=== PATIENT | male | born 1995 | race African-American/Black ===

== ENCOUNTER 2020-03-08 19:39 | Emergency (ER) | payer OTHER ==
[2020-03-08] MEDS ORDERED: SODIUM CHLORIDE 0.9% 500 ML 500 ML IV STA (20:03)
[2020-03-08] MEDS ORDERED: MORPHINE SULFATE 4 MG/ML SYRINGE IVP STA (20:03)
[2020-03-08] MEDS ORDERED: PROPOFOL 10 MG/ML 20 ML VIAL IV ONE (20:13)
--- NOTE | 2020-03-08 20:24 | ED ---
Lower Extremity Injury HPI <Forrest Ventura - Last Filed: 03/08/20 22:22> - General Source: patient, EMS Mode of arrival: wheelchair Limitations: no limitations <Jeanie Herrmann - Last Filed: 03/08/20 22:35> - General Chief Complaint: Extremity Injury, Lower Stated Complaint: Fall, L Ankle Injury Time Seen by Provider: 03/08/20 19:52 - History of Present Illness Initial Comments: Patient is a 24-year-old male presenting to the emergency Department with complaints of left ankle injury. Patient states he was doing some flips outside when he slipped on a landing and had instant left ankle pain. Patient states he is not able ambulate, obvious deformity. He denies any previous ankle injuries or surgeries. He denies hitting his head, no other complaints of pain. He has no further complaints. Upon arrival to the ER, his vital signs are stable (Jeanie Herrmann) - Related Data Allergies Allergy/AdvReac Type Severity Reaction Status Date / Time No Known Allergies Allergy Verified 03/08/20 20:04 Review of Systems ROS Other: All systems not noted in ROS Statement are negative. <Forrest Ventura - Last Filed: 03/08/20 22:22> ROS Other: All systems not noted in ROS Statement are negative. <Jeanie Herrmann - Last Filed: 03/08/20 22:35> ROS Statement: Those systems with pertinent positive or pertinent negative responses have been documented in the HPI. Past Medical History Past Medical History: No Reported History History of Any Multi-Drug Resistant Organisms: None Reported Past Surgical History: No Surgical Hx Reported Past Psychological History: No Psychological Hx Reported Smoking Status: Never smoker Past Alcohol Use History: None Reported Past Drug Use History: None Reported <Jeanie Herrmann - Last Filed: 03/08/20 22:35> General Exam Limitations: no limitations <Jeanie Herrmann - Last Filed: 03/08/20 22:35> - General Exam Comments Initial Comments: GENERAL: Patient is well-developed and well-nourished. Patient is nontoxic and in no acute distress. HEAD: Atraumatic, normocephalic. EYES: Pupils equal round and reactive to light, extraocular movements intact, sclera anicteric, conjunctiva are normal. Eyelids were unremarkable. ENT: TMs normal, nares patent, oropharynx clear without exudates. Moist mucous membranes. NECK: Normal range of motion, supple without lymphadenopathy or JVD. LUNGS: Unlabored respirations. Breath sounds clear to auscultation bilaterally and equal. No wheezes rales or rhonchi. HEART: Regular rate and rhythm without murmurs, rubs or gallops. ABDOMEN: Soft, nontender, normoactive bowel sounds. No guarding, no rebound. No masses appreciated. : Deferred MUSCULOSKELETAL: patient has an obvious deformity of the left lateral ankle, appears dislocated laterally. He is neurovascular intact. No pain of the left upper leg or left knee. No clubbing or cyanosis. NEUROLOGICAL: Patient is alert and oriented x 3. Normal speech. PSYCH: Normal mood, normal affect. SKIN: Warm, Dry, normal turgor, no rashes or lesions noted. (Jeanie Herrmann) Course Vital Signs 03/08/20 03/08/20 03/08/20 20:00 20:55 21:00 Temperature 100.9 F H Pulse Rate 80 75 77 Respiratory 18 18 18 Rate Blood Pressure 169/95 160/95 160/101 O2 Sat by Pulse 100 100 100 Oximetry 03/08/20 03/08/20 03/08/20 21:03 21:05 21:10 Temperature Pulse Rate 73 70 75 Respiratory 18 16 18 Rate Blood Pressure 145/90 151/89 O2 Sat by Pulse 100 100 100 Oximetry 03/08/20 03/08/20 03/08/20 21:15 21:30 21:45 Temperature Pulse Rate 74 79 75 Respiratory 18 18 17 Rate Blood Pressure 162/100 155/90 147/98 O2 Sat by Pulse 100 100 98 Oximetry 03/08/20 03/08/20 22:00 22:15 Temperature 99.6 F Pulse Rate 78 Respiratory 17 Rate Blood Pressure 147/75 O2 Sat by Pulse 99 Oximetry Procedures - Procedural Sedation Procedural Sedation Start Time: 21:00 Procedural Sedation Stop Time: 21:04 Indications: other (ankle dislocation reduction) ASA Class: I Mallampati Airway Score: 2 Preparation: cardiac catheterization technologist applied, pulse oximeter, supplemental O2 applied IV Propofol Dose (mgs): 150 Complications: none Patient Tolerated Procedure: well <Forrest Ventura - Last Filed: 08/08/20 22:22> - Orthopedic Joint Reduction Joint #1 Consent Obtained: verbal consent, written consent Side: left Joint Reduction Location: ankle Analgesia: procedural sedation Technique Used: direct manipulation Post-Reduction Neuro Exam: intact Post-Reduction Vascular Exam: intact Post Reduction X-Ray Obtained: Yes (successful reduction) Post Reduction X-Ray Results: reduced Splint Applied: Yes Patient Tolerated Procedure: well - Orthopedic Splinting/Casting Injury #1 Side: left Lower Extremity Injury Location: ankle Lower Extremity Immobilizer: stirrup splint, Agustin wrap, synthetic pre-padded splint <Jeanie Herrmann - Last Filed: 03/08/20 22:35> Medical Decision Making <Jeanie Herrmann - Last Filed: 03/08/20 22:35> - Medical Decision Making patient is a 24-year-old male presenting with an obvious dislocation of his left ankle after doing some flips. X-rays reveal a lateral dislocation of the midfoot involving the subtalar joint and the talonavicular joint. There is no fracture lines. Patient was given pain control, conscious sedation was performed with Dr. ventura, to perform a left ankle reduction. Post reduction film showed a positive reduction. he has remained neurovascular intact. Patient was placed in a stirrup splint. He will remain nonweightbearing will follow up with orthopedics. Patient tolerated procedure well. he is stable for discharge in agreement with this plan of care. Return parameters discussed the patient he verbalizes understanding. Case discussed with Dr. Ventura. (Jeanie Herrmann) Disposition <Forrest Ventura - Last Filed: 03/08/20 22:22> Is patient prescribed a controlled substance at d/c from ED?: No <Jeanie Herrmann - Last Filed: 03/08/20 22:35> Clinical Impression: Closed dislocation of left ankle Disposition: HOME SELF-CARE Condition: Stable Instructions (If sedation given, give patient instructions): Moderate Sedation (ED), Ankle Dislocation (ED) Additional Instructions: Please return to the Emergency Department if symptoms worsen or any other concerns. Alternate between Tylenol and Motrin for pain. Apply ice to the area, elevation. Keep splint in place until follow-up with orthopedics. Referrals: None,Stated [Primary Care Provider] - 1-2 days Gustavo Proctor, [Doctor of Osteopathic Medicine] - 1-2 days
--- NOTE | 2020-03-08 20:34 | XR ---
EXAMINATION TYPE: XR ankle limited LT DATE OF EXAM: 03/08/2020 COMPARISON: NONE HISTORY: Pain. Injury. TECHNIQUE: 2 views FINDINGS: There is a lateral dislocation of the mid foot. There is lateral dislocation of the talonav icular joint as well as the subtalar joint. The ankle mortise is anatomic. I see no fracture line. IMPRESSION: Lateral dislocation of the midfoot as above involving the subtalar joint and the talonavi cular joint.
--- NOTE | 2020-03-08 21:20 | XR ---
EXAMINATION TYPE: XR ankle limited LT DATE OF EXAM: 03/08/2020 COMPARISON: NONE HISTORY: Post reduction TECHNIQUE: 2 views FINDINGS: There is anatomic reduction of the dislocated mid foot. I see no fracture line. Joint space s are normal. ankle mortise is anatomic. IMPRESSION: Anatomic reduction. No fracture seen.
[2020-03-08 21:54] VITALS: RESP 17
[2020-03-08] MEDS ORDERED: traMADol 50 MG STARTER PACK 3 TAB BTL PO STA (21:57)
[2020-03-08 22:28] VITALS: BP 147/75; PULSE 78
[2020-03-08 22:29] VITALS: TEMP 99.6
== END 2020-03-08 22:16 | disposition home or self-care (01) ==
LOC: EC 19:39
DX: S93.05XA Dislocation of left ankle joint, initial encounter (principal); W18.39XA Other fall on same level, initial encounter; Y93.89 Activity, other specified; Y92.89 Other specified places as the place of occurrence of the external cause
CPT/HCPCS: 73600; 99283; 96374; 96361; 27840; 99152; J2270; J2704

== ENCOUNTER → 2020-03-20 | Outpatient (CLI) | payer SELFPAY ==
--- NOTE | 2020-03-20 12:06 | CT ---
EXAMINATION TYPE: CT foot LT wo con DATE OF EXAM: 03/20/2020 COMPARISON: Ankle radiographs 03/08/2020 HISTORY: 24-year-old male Dislocation of left foot TECHNIQUE: Contiguous axial scanning of the left foot without IV contrast. Coronal and sagittal recon structions performed. 3-D reconstructions generated on a dedicated independent workstation. CT DLP: 230.3 mGycm Automated exposure control for dose reduction was used. FINDINGS: There is generalized soft tissue swelling about the hindfoot. Tiny 3 mm unstable osteochondral fracture of the medial and anterior margin of the posterior subtalar joint, sagittal image 31. Punctate 1 mm density along the dorsal aspect of the talar neck likely a tiny capsular avulsion fract ure fragment. Tiny 2 mm loose body within the talonavicular joint, sagittal image 28 and a second tiny fragment ivette suring 1 mm at the medial margin of the joint, sagittal image 35. Tiny 3 mm chip fracture from the dorsal medial margin of the talar head/neck where there appears to b e a prominent bony spur. Small curvilinear fracture fragments measuring 3 and 6 mm along medial malleolus, refer to coronal im ages 69 and 73. Punctate 1 mm density laterally at the talofibular joint, coronal image 72. Punctate 1 mm density, coronal image 66, lung the course of the distal ATFL. No large acute fracture is identified. Moderate effusion within the posterior tibiotalar and subtalar joints. Achilles tendon appears intact . IMPRESSION: 1. Satisfactory reduction of the subtalar joint/hindfoot. There is a tiny 3 mm unstable osteochondral fragment at the medial and anterior margin of the posterior subtalar joint arising from the calcaneu s. 2. Scattered tiny loose bodies and punctate avulsion fragments as outlined above. 3. Generalized soft tissue swelling.
== END ==
LOC: RADCTMAIN 11:19
PROVIDERS: ATTEND Orthopaedic Surgery
DX: S93.315A Dislocation of tarsal joint of left foot, initial encounter (principal); M79.89 Other specified soft tissue disorders